=== PATIENT | male | born 1950 | race Caucasian/White ===

== ENCOUNTER 2018-09-09 10:52 | Outpatient (CLI) | payer OTHER, BC ==
[~2018-09-09 10:52] MED LIST: ALB0.5UD IH; AMIO200T40 PO; ASPI-1265 PO; ATOR10TA PO; BENA40TA8 PO; COLC0.6T69 PO; FA/M1TAB PO; FURO40TA4 PO; LORA1TAB PO; METO-467 PO; PARO30TA4 PO; SPIR25TA5 PO
== END 2018-09-09 23:59 | disposition home or self-care (01) ==
LOC: RAD 10:52
PROVIDERS: ATTEND Internal Medicine
DX: J96.20 Acute and chronic respiratory failure, unspecified whether with hypoxia or hypercapnia (principal); J96.00 Acute respiratory failure, unspecified whether with hypoxia or hypercapnia; J44.9 Chronic obstructive pulmonary disease, unspecified
CPT/HCPCS: 78582; A9539; A9540